=== PATIENT | male | born 1955 | race Asian ===

== ENCOUNTER 2021-11-18 06:20 | Emergency (ER) | payer MEDICAID ==
[~2021-11-18] VITALS: Ht 172.7 cm; Wt 80.9 kg
[2021-11-18] MEDS ORDERED: METO50 PO (06:32)
[2021-11-18] MEDS ORDERED: PARO10TA89 PO (06:32)
[2021-11-18] MEDS ORDERED: LOSA-381 PO (06:32)
[2021-11-18] MEDS ORDERED: ALBU8HFA IH (06:32)
[2021-11-18] MEDS ORDERED: SIMV-261 PO (06:32)
[2021-11-18] MEDS ORDERED: ALBUTEROL SULFATE 2.5 MG/0.5 ML NEB SOLUTION NEB ONE (07:15)
[2021-11-18] MEDS ORDERED: PredniSONE 20 MG TABLET PO ONE (07:15)
[2021-11-18] MEDS ORDERED: IPRATROPIUM BROMIDE 0.5 MG/2.5 ML NEB SOLUTION NEB ONE (07:15)
[2021-11-18] MEDS ORDERED: PRED-554 PO (07:59)
[2021-11-18] MEDS ORDERED: BENZ-70 PO (07:59)
[2021-11-18 08:13] VITALS: BP 153/80
== END 2021-11-18 08:16 | disposition home or self-care (01) ==
LOC: EMS 06:21
DX: J45.909 Unspecified asthma, uncomplicated (principal); I10 Essential (primary) hypertension
CPT/HCPCS: 94640; 99283; J7512